=== PATIENT | female | born 1965 | race Caucasian/White ===

== ENCOUNTER 2016-06-26 11:15 | Emergency (ER) | payer OTHER ==
[2016-06-26 11:22] VITALS: TEMP 98.5; BMI 21.1
--- NOTE | 2016-06-26 12:48 | PDOC ---
History of Present Illness - General Chief Complaint: Pain Stated Complaint: WEAKNESS Time Seen by Provider: 06/26/16 12:33 History Source: Patient Exam Limitations: No Limitations - History of Present Illness Initial Comments: 06/26/16 12:47 51 yo F with significant PMhx of asthma presents with one week history of cough and flu-like symptoms. She states for the past week she has become progressively weaker and worsening body aches accompanied by productive cough of yellow sputum. She has tried several over the counter and holistic remedies with minimal relief. She also endorses some vague localized 5/10 suprapubic pressure pain made worse by movement accompanied by nausea. Denies CP, CHASE, palpitations, abd. pain. 06/26/16 13:01 Timing/Duration: reports: week Severity: reports: mild Possible Cause: Yes: illness exposure Associated Symptoms: reports: chest pain/soreness, cough Past History - Travel Traveled outside of the country in the last 30 days: No Close contact w/someone who was outside of country & ill: No - Past Medical History Allergies/Adverse Reactions: Allergies Allergy/AdvReac Type Severity Reaction Status Date / Time No Known Allergies Allergy Verified 06/26/16 11:22 Home Medications: Ambulatory Orders Sertraline HCl [Zoloft] 50 mg PO DAILY 12/09/15 Asthma: Yes - Psycho/Social/Smoking Cessation Hx Anxiety: No Suicidal Ideation: No Smoking History: Never smoked Have you smoked in the past 12 months: No Hx Alcohol Use: Yes (SOCIAL) Drug/Substance Use Hx: No Substance Use Type: None Respiratory Specific PMHX - Complaint Specific PMHX Angina: No Bronchitis: Yes Pneumonia: No Pulmonary Embolus: No Review of Systems - Review of Systems Able to Perform ROS?: Yes Is the patient limited [place] proficient: No HEENTM: Yes: Nose Congestion, Throat Pain Respiratory: Yes: Cough, Shortness of Breath, Productive cough ABD/GI: Yes: Nausea. No: Abdominal Distended Psychiatric: Yes: Depression *Physical Exam - Vital Signs Last Vital Signs Temp Pulse Resp BP Pulse Ox 98.5 F 88 20 140/77 99 06/26/16 11:19 06/26/16 11:19 06/26/16 11:19 06/26/16 11:19 06/26/16 11:19 - Physical Exam General Appearance: Yes: Mild Distress HEENT: positive: EOMI, SANYA Neck: positive: Supple Respiratory/Chest: positive: Lungs Clear, Normal Breath Sounds. negative: Respiratory Distress, Accessory Muscle Use Cardiovascular: positive: Regular Rhythm, Regular Rate, S1, S2 Vascular Pulses: Dorsalis-Pedis (R): 2+, Doralis-Pedis (L): 2+ Gastrointestinal/Abdominal: positive: Normal Bowel Sounds, Flat, Soft. negative : Tender, Organomegaly, Pulsatile Mass Musculoskeletal: positive: Normal Inspection, CVA Tenderness Extremity: positive: Normal Inspection, Normal Range of Motion Integumentary: positive: Normal Color, Dry, Warm Neurologic: positive: Fully Oriented, Alert, Normal Mood/Affect ED Treatment Course - LABORATORY CBC & Chemistry Diagram: 06/26/16 13:40 06/26/16 13:40 *DC/Admit/Observation/Transfer Diagnosis at time of Disposition: Influenza - Discharge Dispostion Disposition: HOME Admit: No - Patient Instructions Printed Discharge Instructions: DI for Influenza -- Adult Additional Instructions: Follow up with PCP in one week. Drink plenty of fluids. Can take Tylenol or ibuprofen for pain. Return to ED if symptoms worsen. You were found to have increase in Liver enzymes that should be followed up as outpatient. Increase activity as tolerated.
[2016-06-26] MEDS ORDERED: ONDANSETRON 4 MG/2 ML VIAL IVPB ONE (12:55)
[2016-06-26] MEDS ORDERED: ONDANSETRON 4 MG/2 ML VIAL ONE (13:36)
[2016-06-26] MEDS ORDERED: SODIUM CHLORIDE 1,000 ML IV STA (14:08)
--- NOTE | 2016-06-26 14:11 | PDOC ---
[id number] I have performed the following: I have examined & evaluated the patient, The case was reviewed & discussed with the resident, I agree w/resident's findings & plan, Exceptions are as noted - HPI HPI: 51 yo F history asthma presents with 1 week history of cough, congestion. She states that she has had weakness, dec appetite. She has been using over the counter and holistic remedies, but still feels congested and ill. C/o diffuse weakness. Also c/o suprapubic pressure with nausea. No vomiting, diarrhea, fever , chest pain. - Physicial Exam PE: GENERAL: Awake, alert, and fully oriented, in no acute distress HEAD: No signs of trauma EYES: PERRLA, EOMI, sclera anicteric, conjunctiva clear ENT: Auricles normal inspection, hearing grossly normal, oropharynx clear without exudates. Moist mucosa. Nares with deviated septum (deviated toward the patient's left side). NECK: Normal ROM, supple, no lymphadenopathy, JVD, or masses LUNGS: Breath sounds equal, clear to auscultation bilaterally. No wheezes, and no crackles HEART: Regular rate and rhythm, normal S1 and S2, no murmurs, rubs or gallops ABDOMEN: Soft, mild suprapubic tenderness, normoactive bowel sounds. No guarding, no rebound. No masses EXTREMITIES: Normal range of motion, no edema. No clubbing or cyanosis. No cords, erythema, or tenderness NEUROLOGICAL: Cranial nerves II through XII grossly intact. Normal speech, normal gait SKIN: Warm, Dry, normal turgor, no rashes or lesions noted. - Medical Decision Making Patient is well-appearing, no signs of acute abdomen. Routine labs show mild transaminitis. Pt given IV hydration. Counseled to f/u with PMD for the transaminitis. Added on an acute hepatitis panel.
[2016-06-26 14:32] LABS: BASOPHIL 0.6 % (0-2.0); EOSINOPHIL 2.4 % (0-4.5); MCH 31.3 pg (25.7-33.7); MCHC 34.1 g/dl (32.0-36.0); MEAN CELL VOLUME 91.7 fl (80-96); MEAN PLT VOLUME 9.4 fl (7.5-11.1); NEUTROPHILS 69.5 % (42.8-82.8); PLATELET COUNT 217 K/MM3 (134-434); RDW 12.9 % (11.6-15.6); WHITE BLOOD COUNT 5.7 K/mm3 (4.0-10.0)
[2016-06-26 14:33] LABS: URINE APPEARANCE CLEAR; URINE BILIRUBIN NEGATIVE (NEGATIVE); URINE BLOOD NEGATIVE (NEGATIVE); URINE COLOR LTYELLOW; URINE GLUCOSE (UA) NEGATIVE (NEGATIVE); URINE KETONE NEGATIVE (NEGATIVE); URINE LEUK ESTERASE NEGATIVE (NEGATIVE); URINE NITRITE NEGATIVE (NEGATIVE); URINE PROTEIN NEGATIVE (NEGATIVE); URINE UROBILINOGEN NEGATIVE E.U./dl (0.2-1.0)
[2016-06-26 15:08] LABS: ALBUMIN 4.1 g/dl (3.4-5.0); ANION GAP 10 (8-16); BILIRUBIN,TOTAL 0.4 mg/dL (0.2-1.0); CALCIUM 9.3 mg/dL (8.5-10.1); CO2 30 mmol/L (21-32); COCKROFT - GAULT 74.5365; CREATININE 0.7 mg/dL (0.55-1.02); GLUCOSE,RANDOM 79 mg/dL (74-106); SGOT/AST 84 U/L (15-37); SGPT/ALT 109 U/L (12-78); TOT PROT 7.6 g/dl (6.4-8.2)
[2016-06-26 15:10] LABS: ALK PHOS 143 U/L (45-117)
--- NOTE | 2016-06-26 16:18 | EKG ---
Test Reason : Blood Pressure : / mmHG Vent. Rate : 065 BPM Atrial Rate : 065 BPM P-R Int : 190 ms QRS Dur : 072 ms QT Int : 406 ms P-R-T Axes : 063 052 049 degrees QTc Int : 422 ms NORMAL SINUS RHYTHM POSSIBLE LEFT ATRIAL ENLARGEMENT BORDERLINE ECG NO PREVIOUS ECGS AVAILABLE Confirmed by ROSARIO BRIZUELA, VANI ([id number]) on 06/26/2016 4:18:03 PM Referred By: Confirmed By:VANI PONCE MD
[2016-06-26 18:42] VITALS: BP 122/75; PULSE 76
== END 2016-06-26 18:35 | disposition home or self-care (01) ==
LOC: JER 11:15
DX: J11.1 Influenza due to unidentified influenza virus with other respiratory manifestations (principal)
CPT/HCPCS: 36415; 71010-TC; 80053; 80074; 81003; 84702; 84703; 85025; 93005; 93010; 99283-25

== ENCOUNTER 2017-03-09 16:11 | Emergency (ER) | payer OTHER ==
--- NOTE | 2017-03-09 16:19 | PDOC ---
Rapid Medical Evaluation Time Seen by Provider: 03/09/17 16:13 Medical Evaluation: Allergies Allergy/AdvReac Type Severity Reaction Status Date / Time No Known Allergies Allergy Verified 06/26/16 11:22 03/09/17 16:13 I have performed a brief in person evaluation of this patient. The patient presents with chief complaint of : headache after falling and hitting head 03/03/17 on molding at a restaurant one week ago sent for repeat imaging had negative ct one week ago. denies vomiting taking zofran with some relief. Pertinent PE findings: none Aox3 no distress vitals table I have ordered the following: none The patient will proceed to the ER for further evaluation.
[2017-03-09 16:20] VITALS: BMI 22.6
[2017-03-09] MEDS ORDERED: METOCLOPRAMIDE HCL 10 MG TABLET (FP) PO ONE ×2 (19:41→20:10)
[2017-03-09] MEDS ORDERED: IBUPROFEN 600 MG TABLET (FP) PO ONE ×2 (19:41→20:10)
--- NOTE | 2017-03-09 20:04 | PDOC ---
History of Present Illness - History of Present Illness Initial Comments: 03/09/17 20:06 The patient is a 51 year old female, with a significant past medical history of asthma, who presents to the emergency department with persistent headaches since a mechanical fall on 03/01/17. She states she hit the back of her head during her fall, but denies LOC. The patient reports having a normal CT following her fall and followed up with her PCP the day after, however, has been experiencing diffuse headaches since. She states she went to an urgent care for reevaluation and was referred to the ED for repeat head CT. She reportedly took one Advil yesterday without relief. She denies chest pain, shortness of breath, and dizziness. She denies fever, chills, nausea, vomit, diarrhea and constipation. She denies dysuria, frequency , urgency and hematuria. Allergies: NKDA <Elham Escobar - Last Filed: 03/09/17 21:26> - General History Source: Patient <Per Mosley - Last Filed: 03/09/17 21:32> - General Chief Complaint: Headache Stated Complaint: PCP SENT Time Seen by Provider: 03/09/17 16:13 Past History <Elham Escobar - Last Filed: 03/09/17 21:26> - Past Medical History Asthma: Yes COPD: No - Suicide/Smoking/Psychosocial Hx Smoking History: Never smoked Have you smoked in the past 12 months: No Information on smoking cessation initiated: No Hx Alcohol Use: No Drug/Substance Use Hx: No Substance Use Type: None <Per Mosley - Last Filed: 03/09/17 21:32> - Past Medical History Allergies/Adverse Reactions: Allergies Allergy/AdvReac Type Severity Reaction Status Date / Time No Known Allergies Allergy Verified 03/09/17 18:59 Home Medications: Ambulatory Orders Amox-Tr/K Cl [Augmentin 500Mg Tablet] 1 tab PO BID #14 tablet 03/09/17 Etodolac 400 mg PO BID 03/09/17 Meclizine HCl 25 mg PO TID #30 tablet 03/09/17 Ondansetron HCl 4 mg PO TID PRN 03/09/17 Review of Systems - Review of Systems Able to Perform ROS?: Yes Comments:: 12/20/17 20:06 CONSTITUTIONAL: Absent: fever, chills, diaphoresis, generalized weakness, malaise, loss of appetite HEENT: Absent: rhinorrhea, nasal congestion, throat pain, throat swelling, difficulty swallowing, mouth swelling, ear pain, eye pain, visual Changes CARDIOVASCULAR: Absent: chest pain, syncope, palpitations, irregular heart rate, lightheadedness , peripheral edema RESPIRATORY: Absent: cough, shortness of breath, dyspnea with exertion, orthopnea, wheezing, stridor, hemoptysis GASTROINTESTINAL: Absent: abdominal pain, abdominal distension, nausea, vomiting, diarrhea, constipation, melena, hematochezia GENITOURINARY: Absent: dysuria, frequency, urgency, hesitancy, hematuria, flank pain, genital pain MUSCULOSKELETAL: Absent: myalgia, arthralgia, joint swelling SKIN: Absent: rash, itching, pallor HEMATOLOGIC/IMMUNOLOGIC: Absent: easy bleeding, easy bruising, lymphadenopathy, frequent infections ENDOCRINE: Absent: unexplained weight gain, unexplained weight loss, heat intolerance, cold intolerance NEUROLOGIC: (+) headache, Absent: focal weakness or paresthesias, dizziness, unsteady gait, seizure, mental status changes, bladder or bowel incontinence PSYCHIATRIC: Absent: anxiety, depression, suicidal or homicidal ideation, hallucinations. <Elham Escobar - Last Filed: 03/09/17 21:26> *Physical Exam - Vital Signs Last Vital Signs Temp Pulse Resp BP Pulse Ox 97.9 F 77 18 134/85 100 03/09/17 16:15 03/09/17 16:15 03/09/17 16:15 03/09/17 16:15 03/09/17 16:15 - Physical Exam Comments: 03/09/17 20:07 GENERAL: Well developed, well nourished. Awake and alert. No acute distress. HEENT: Normocephalic, atraumatic. No raccoon or blount sign. PERRLA, EOMI. No conjunctival pallor. Sclera are non-icteric. Moist mucous membranes. Oropharynx is clear. NECK: Supple. Full ROM. No JVD. Carotid pulses 2+ and symmetric, without bruits. No thyromegaly. No lymphadenopathy. No C-Spine tenderness. CARDIOVASCULAR: Regular rate and rhythm. No murmurs, rubs, or gallops. Distal pulses are 2+ and symmetric. PULMONARY: No evidence of respiratory distress. Lungs clear to auscultation bilaterally. No wheezing, rales or rhonchi. ABDOMINAL: Soft. Non-tender. Non-distended. No rebound or guarding. No organomegaly. Normoactive bowel sounds. MUSCULOSKELETAL Normal range of motion at all joints. No bony deformities or tenderness. No CVA tenderness. No vertebral tenderness EXTREMITIES: No cyanosis. No clubbing. No edema. No calf tenderness. SKIN: Warm and dry. Normal capillary refill. No rashes. No jaundice. NEUROLOGICAL: Alert, awake, appropriate. Cranial nerves 2-12 intact. Normoreflexic in the upper and lower extremities. Normal speech. Toes are down-going bilaterally. Gait is normal without ataxia. PSYCHIATRIC: Cooperative. Good eye contact. Appropriate mood and affect. <Elham Escobar - Last Filed: 03/09/17 21:26> - Vital Signs Last Vital Signs Temp Pulse Resp BP Pulse Ox 97.9 F 77 18 134/85 100 03/09/17 16:15 03/09/17 16:15 03/09/17 16:15 03/09/17 16:15 03/09/17 16:15 <Per Mosley - Last Filed: 03/09/17 21:32> ED Treatment Course - RADIOLOGY Radiograph Interpretation: EXAM#: TYPE/EXAM: RESULT: [id number] CT/HEAD CT WITHOUT CONTRAST Cranial CT without contrast Clinical information: dizziness Multiplanar imaging was performed. Intravenous contrast was not administered. No intracranial hemorrhage is seen. There is no discrete infarct within the limitations of CT. No extra-axial fluid collection is noted. There is no definite abnormal attenuation. No gross mass lesion is identified. The ventricles and cisterns appear unremarkable. No calvarial defect is seen. There is almost complete opacification of the right maxillary sinus consistent with sinusitis - ? acute versus chronic. Correlate clinically. Mild bilateral ethmoid sinus mucosal thickening is seen. There is opacification of the partially imaged right nasal cavity superiorly. Impression: No CT evidence of acute intracranial pathology. Paranasal sinus disease as discussed above. Reported By: Thom Grijalva MD 03/09/17 [id number] EXAM#: TYPE/EXAM: RESULT: [id number] CT/CERVICAL SPINE CT W/O CONTR Cervical spine CT without contrast Clinical information given: status post fall one week ago Multiplanar imaging was performed. No fracture or posttraumatic malalignment is noted. Moderate multilevel degenerative disc and facet joint changes are noted. The perivertebral soft tissues demonstrate no obvious abnormality. Impression: No fracture is identified. Reported By: Thom Grijalva MD 03/09/172103 <Elham Escobar - Last Filed: 03/09/17 21:26> - RADIOLOGY Radiology Studies Ordered: Category Date Time Status CERVICAL SPINE CT W/O CONTR [CT] Stat CT Scan 03/09/17 19:[address] WITHOUT CONTRAST [CT] Stat CT Scan 03/09/17 19:39 Ordered <Per Mosley - Last Filed: 03/09/17 21:32> Medical Decision Making - Medical Decision Making 03/09/17 21: Dr. Mosley: The scribe's documentation has been prepared under my direction and personally reviewed by me in its entirery. I confirm that the note above accurately reflects all work, treatment, procedures, and medical decision making performed by me. <Per Mosley - Last Filed: 03/09/17 21:32> *DC/Admit/Observation/Transfer - Attestations Scribe Attestion: 03/09/17 20:07 Documentation prepared by Elham Escobar, acting as medical research assistant for Per Mosley DO <Elham Escobar - Last Filed: 03/09/17 21:26> - Discharge Dispostion Admit: No <Per Mosley - Last Filed: 03/09/17 21:32> Diagnosis at time of Disposition: Headache Qualifiers: Headache type: unspecified Headache chronicity pattern: unspecified pattern Intractability: not intractable Qualified Code(s): R51 - Headache Sinusitis Qualifiers: Sinusitis location: maxillary Chronicity: unspecified Qualified Code(s): J32.0 - Chronic maxillary sinusitis - Discharge Dispostion Disposition: HOME Condition at time of disposition: Stable - Prescriptions Prescriptions: Amox-Tr/K Cl [Augmentin 500Mg Tablet] 1 tab PO BID #14 tablet Meclizine HCl 25 mg PO TID #30 tablet - Referrals Referrals: STAFF,NOT ON [Primary Care Provider] - Nany Zuñiga MD [Staff Physician] - Diego Regan MD [Staff Physician] - - Patient Instructions Printed Discharge Instructions: DI for Headache, DI for Sinusitis Additional Instructions: continue all the medications you are take and the new ones just prescribed. Follow up with the doctors referred to you. Return if any problems. - Post Discharge Activity
[2017-03-09] MEDS ORDERED: AMOX TR/POT CLAV 500MG/125MG TABLETS (FP) PO ONE (21:28)
[2017-03-09] MEDS ORDERED: MECLIZINE HCL 25 MG TABLET (FP) PO ONE (21:28)
[2017-03-09] MEDS ORDERED: MECLIZINE HCL 25 MG TABLET (FP) ONE (21:34)
[2017-03-09] MEDS ORDERED: AMOX TR/POT CLAV 875MG/125MG TABLETS (FP) ONE (21:34)
[2017-03-09 22:01] VITALS: BP 115/85; PULSE 70; TEMP 98.7
== END 2017-03-09 22:02 | disposition home or self-care (01) ==
LOC: JER 16:11
DX: J32.0 Chronic maxillary sinusitis (principal); R51 Headache; J45.909 Unspecified asthma, uncomplicated; W18.39XA Other fall on same level, initial encounter; Y93.89 Activity, other specified; Y92.9 Unspecified place or not applicable
CPT/HCPCS: 70450-TC; 72125-TC; 99282-25

== ENCOUNTER 2018-05-01 20:19 | Emergency (ER) | payer OTHER ==
[2018-05-01 20:24] VITALS: BP 114/66; PULSE 107; TEMP 98.7; BMI 21.7
--- NOTE | 2018-05-01 20:25 | PDOC ---
Rapid Medical Evaluation Chief Complaint: Chest Pain Medical Evaluation: Allergies Allergy/AdvReac Type Severity Reaction Status Date / Time No Known Allergies Allergy Verified 03/09/17 18:59 I have performed a brief in-person evaluation of this patient. The patient presents with a chief complaint of: c/o pain on inspiration, substernal chest tightness from this morning Pertinent physical exam findings: Appears in mild distress due to pain, lungs clear I have ordered the following: Labs, EKG The patient will proceed to the ED for further evaluation. 05/01/18 20:22
--- NOTE | 2018-05-01 23:01 | PDOC ---
History of Present Illness - General Chief Complaint: Chest Pain Stated Complaint: ASTHMA Time Seen by Provider: 05/01/18 20:22 History Source: Patient Exam Limitations: No Limitations - History of Present Illness Initial Comments: HPI: 53 y/o female presenting to [facility] ER complaining of left sided anterior chest wall pain since waking this morning. Pt states the pain was worse at onset and nonradiating. She experienced shortness of breath (described as air hunger), extreme fatigue, and two episodes of vomiting. Further endorses generalized bilateral shoulder and neck pain. Symptoms started to resolve on arrival to this department. Pain is worse with palpation. Denies trauma to the area. Denies current SOB. Further complaining of right posterior hip pain, which as been acute on chronic since beginning of this month. Was evaluated by Ramon on or Tuesday of last week. A x-ray was obtained and reported to be normal. Was prescribed ibuprofen 800, which did not provide relief after one day of use, so pt self-discontinued. Social Hx: - EtOH: One glass of wine per day - Tobacco: Denies - Street Drugs: Denies Medical Hx: - Pt denies past medical history. Denies prescription medications. Surgical Hx: - Pt denies past surgical history. Past History - Past Medical History Allergies/Adverse Reactions: Allergies Allergy/AdvReac Type Severity Reaction Status Date / Time No Known Allergies Allergy Verified 05/01/18 23:46 Home Medications: Ambulatory Orders NK [No Known Home Medication] 05/02/18 Asthma: Yes COPD: No - Immunization History Immunization Up to Date: Yes - Suicide/Smoking/Psychosocial Hx Smoking History: Never smoked Have you smoked in the past 12 months: No Hx Alcohol Use: No Drug/Substance Use Hx: No Substance Use Type: None Review of Systems - Review of Systems Able to Perform ROS?: Yes Comments:: In addition to that documented in the HPI above, the additional ROS was obtained : Constitutional: Denies fevers or chills. Denies recent illness. Eyes: Denies vision changes ENMT: Denies sore throat or trouble swallowing CV: per HPI Resp: per HPI GI: Endorses 2x episodes of emesis. Denies diarrhea : Denies painful urination MSK: Yoga trauma per HPI Skin: Denies new rashes Neuro: Resolved right arm tingling. Denies weakness Endocrine: Denies polyuria Heme: Denies bleeding or bruising *Physical Exam - Vital Signs Last Vital Signs Temp Pulse Resp BP Pulse Ox 98.7 F 107 H 20 114/66 100 05/01/18 20:22 05/01/18 20:22 05/01/18 20:22 05/01/18 20:22 05/01/18 20:22 - Physical Exam Comments: Constitutional: Well-developed, well-nourished, non-toxic female in no acute distress or obvious discomfort. Found sitting upright on wheel chair in vertical area. Alert and oriented x4. Answered all questions appropriately and completely. Speech was non-labored, non-pressured. Head: Normocephalic. No obvious external signs of trauma. Eyes: Sclerae white. EARS: Hearing grossly intact. NOSE: No nasal discharge. Neck: Supple, trachea is midline. Chest / Cardiovascular: Regular rate and regular rhythm. No murmur, rubs, clicks, or gallops. Peripheral pulses: Radial pulses full. Exquisite tenderness to left sternal border with grimace and withdrawal. No pain with active or passive ROM of left upper extremity. No pain with empty beer can test or posterior lift off test in left upper extremity. No overlying skin lesions. Respiratory: Breathing unlabored. Equal chest rise and fall. Clear to auscultation bilaterally. No stridor, no wheezing, no rhonchi. Gastrointestinal: abdomen is soft, non-tender, non-distended. Neuro: Alert and oriented. Moving all four extremities spontaneously. Able to transition from wheelchair to exam bed without obvious difficulty. Skin: Warm, dry, and intact. Psych: Affect: tearful. Mood: concerned. Moderate Sedation - Procedure Monitoring Vital Signs: Procedure Monitoring Vital Signs Temperature 98.7 F 05/01/18 20:22 Pulse Rate 107 H 05/01/18 20:22 Respiratory Rate 20 05/01/18 20:22 Blood Pressure 114/66 05/01/18 20:22 O2 Sat by Pulse Oximetry (%) 100 05/01/18 20:22 ED Treatment Course - LABORATORY CBC & Chemistry Diagram: 05/02/18 00:05 05/02/18 00:05 Medical Decision Making - Medical Decision Making *Reviewed vital signs, nursing notes, and prior visit documentation (if available). 53 y/o female complaining of resolved SOB and persistent reproducible anterior wall chest pain. No significant PMH. Non-smoker. Afebrile. Vitals remarkable for borderline tachycardia at triage which resolved on EKG without intervention. Normotensive. Physical exam as described above. Suspect costochondritis. Low suspicion for ACS. EKG revealed a sinus rhythm without ectopy. Troponin not elevated. Second troponin not obtained as pain has been occurring for >3 hours. Low suspicion for PE as SOB has resolved. D-dimer not elevated. Low suspicion for pneumonia. CXR unremarkable for acute cardiopulmonary process. Ordered Naproxen for symptom relief. Pt reassessed and reports pain has improved. Recommended pt take OTC NSAIDs or continue using prescription strength Ibuprofen prescribed by PCP. Discussed imaging and laboratory results with pt. Answered all questions. Provided return precautions. Pt expressed verbal understanding and agreement with plan to discharge home with outpatient follow up. *DC/Admit/Observation/Transfer Diagnosis at time of Disposition: Atypical chest pain - Discharge Dispostion Disposition: HOME Condition at time of disposition: Good Decision to Admit order: No - Referrals Referrals: Zo Alaniz MD [Primary Care Provider] - - Patient Instructions Printed Discharge Instructions: DI for Atypical Chest Pain, DI for Costochondritis Additional Instructions: You were seen today for chest pain and shortness of breath. Your EKG, blood work , and chest x-ray were normal. Your symptoms are likely caused by costochondritis, a viral infection in your chest wall. The treatment is over the counter NSAIDs like advil and motrin. Take as directed on the package insert. Do not exceed the recommended dosage. Follow up with your primary care doctor within the next 3-4 days. You will need to call to make an appointment. A copy of todays results are attached to this packet. Take it to the appointment so your doctor can review them. Go to the nearest emergency department if your condition worsens or you feel like you need additional emergency evaluation. Print Language: HUNGARIAN - Post Discharge Activity
--- NOTE | 2018-05-01 23:27 | PDOC ---
Attending Attestation - HPI HPI: 05/02/18 00:40 The patient is a 53 year old female, with a significant past medical history of asthma, who presents to the emergency department with, left sided chest pain worsening with deep inspiration. She denies recent fevers, chills, headache or dizziness. She denies recent nausea, vomit, diarrhea or constipation. She denies recent dysuria, frequency, urgency or hematuria. Allergies: NKDA Primary Care Physician: Dr. Alaniz <Malissa Garcia - Last Filed: 05/02/18 00:40> - Resident Resident Name: Jasen Shields - ED Attending Attestation I have performed the following: I have examined & evaluated the patient, The case was reviewed & discussed with the resident, I agree w/resident's findings & plan, Exceptions are as noted - Physicial Exam PE: 05/02/18 01:34 53-year-old female had complaint of some reproducible chest pain, fatigue, chills today Head normocephalic/atraumatic. Neck supple, no JVD, no bruits. Lungs are clear to auscultation bilaterally CVS regular rate and rhythm S1, S2, no rubs, gallops or murmurs. Abdomen flat Extremities no edema, no clubbing, no cyanosis. Skin warm and dry. Neuro alert and is 3, ambulatory, no gross focal neural deficits Psych appropriate 05/02/18 01:34 - Medical Decision Making 05/02/18 16:23 negative troponin negative ddimer cxr napd labs unremarkable imp URI ,d/c home <Bella Gambino - Last Filed: 05/02/18 16:23> Attestations - Attestations 05/02/18 00:40 Documentation prepared by Malissa Garcia, acting as medical insurance biller for Bella Gambino MD. <Malissa Garcia - Last Filed: 05/02/18 00:40>
[2018-05-01] MEDS ORDERED: NAPROXEN 500 MG TABLET (FP) PO ONE (23:33)
[2018-05-02] MEDS ORDERED: NAPROXEN 500 MG TABLET (FP) ONE (00:10)
[2018-05-02 00:32] LABS: BASO % 0.2 % (0-2.0); EOS % 0.2 % (0-4.5); HEMATOCRIT 39.7 % (32.4-45.2); HEMOGLOBIN 14.2 GM/dL (10.7-15.3); LYMPH % 9.1 % (8-40); MCH 33.1 pg (25.7-33.7); MCHC 35.8 g/dl (32.0-36.0); MEAN CELL VOLUME 92.3 fl (80-96); MEAN PLT VOLUME 8.9 fl (7.5-11.1); MONO % 9.8 % (3.8-10.2); NEUT % 80.7 % (42.8-82.8); PLATELET COUNT 207 K/MM3 (134-434); RDW 13.5 % (11.6-15.6)
[2018-05-02 00:51] LABS: ANION GAP 6 MMOL/L (8-16); BLOOD UREA NITROGEN 11 mg/dL (7-18); CALCIUM 8.4 mg/dL (8.5-10.1); CHLORIDE 102 mmol/L (98-107); CO2 27 mmol/L (21-32); CREATININE 0.6 mg/dL (0.55-1.3); GLUCOSE,RANDOM 107 mg/dL (74-106); POTASSIUM 3.5 mmol/L (3.5-5.1); SODIUM 136 mmol/L (136-145)
--- NOTE | 2018-05-02 16:29 | EKG ---
Test Reason : Blood Pressure : / mmHG Vent. Rate : 089 BPM Atrial Rate : 089 BPM P-R Int : 182 ms QRS Dur : 084 ms QT Int : 380 ms P-R-T Axes : 080 074 064 degrees QTc Int : 462 ms NORMAL SINUS RHYTHM WITH SINUS ARRHYTHMIA NORMAL ECG WHEN COMPARED WITH ECG OF 26-JUN-2016 13:16, NO SIGNIFICANT CHANGE WAS FOUND Confirmed by Declan Butler ([id number]) on 05/02/2018 4:28:58 PM Referred By: Confirmed By:Declan Butler
== END 2018-05-02 03:48 | disposition home or self-care (01) ==
LOC: JER 20:19
DX: R07.89 Other chest pain (principal)
CPT/HCPCS: 36415; 71046-TC-FY; 80048; 84484; 85025; 85379; 93005; 93010; 99284-25

== ENCOUNTER 2023-03-21 12:24 | Emergency (ER) | payer OTHER ==
[2023-03-21 12:39] VITALS: PULSE 83; RESP 18; TEMP 98.2
[2023-03-21] MEDS ORDERED: ALBUTEROL SO4 2.5/IPRATROPIUM 0.5 INH SOL 3 ML VIAL.NEB. NEB ONE ×2 (14:43→14:45)
[2023-03-21 16:06] VITALS: BP 134/79
== END 2023-03-21 16:07 | disposition home or self-care (01) ==
LOC: JERFT 12:24
PROC: 3E0F7GC Introduction of Other Therapeutic Substance into Respiratory Tract, Via Natural or Artificial Opening (ICD-10-PCS; principal; 2023-03-21)
DX: R07.89 Other chest pain (principal); J45.901 Unspecified asthma with (acute) exacerbation
CPT/HCPCS: 71046-TC-FY; 99283-25

== ENCOUNTER 2023-06-10 18:46 | Emergency (ER) | payer OTHER ==
[2023-06-10 18:50] VITALS: BP 161/73; PULSE 79; RESP 19; TEMP 98.6; BMI 21.7
[2023-06-10] MEDS ORDERED: KETOROLAC TROMETHAMINE 30 MG/1 ML VIAL ONE (19:35)
[2023-06-10] MEDS ORDERED: ACETAMINOPHEN 500 MG TABLET (FP) ONE (19:35)
[2023-06-10] MEDS: KETOROLAC TROMETHAMINE 30 MG/1 ML VIAL IM ONE (19:38)
[2023-06-10] MEDS: ACETAMINOPHEN 500 MG TABLET (FP) PO ONE (19:39)
[2023-06-10] MEDS ORDERED: predniSONE 20 MG TABLET (UD) ONE (20:04)
[2023-06-10] MEDS: predniSONE 20 MG TABLET (UD) PO ONE (20:05)
== END 2023-06-10 20:18 | disposition home or self-care (01) ==
LOC: JERFT 18:46
PROC: 3E0233Z Introduction of Anti-inflammatory into Muscle, Percutaneous Approach (ICD-10-PCS; principal; 2023-06-10)
DX: S99.922A Unspecified injury of left foot, initial encounter (principal); W23.0XXA Caught, crushed, jammed, or pinched between moving objects, initial encounter; Y93.01 Activity, walking, marching and hiking; Y99.0 Civilian activity done for income or pay
CPT/HCPCS: 73660-TC-LT-FY; 99284-25